=== PATIENT | female | born 1955 | race Caucasian/White ===

== ENCOUNTER 2016-11-20 12:59 | Emergency (ER) | payer OTHER ==
[~2016-11-20] VITALS: Ht 165.1 cm; Wt 58.7 kg
[~2016-11-20 12:59] MED LIST: ALPR-138 PO; KETO10 PO; LEVA750T PO; MAXA10TA2 PO; PRAV20 PO
[2016-11-20 13:16] VITALS: BP 151/80; PULSE 79; TEMP 97.8
--- NOTE | 2016-11-20 13:57 | PD ---
HPI Chief Complaint: Headache Time Seen by Provider: 13:55 Travel History International Travel<30 days: No Contact w/Intl Traveler<30days: No Traveled to known affect area: No History of Present Illness HPI This 61-year-old female is complaining of headache. She started having headache around 10:00 this morning. It is a very sharp left-sided headache. Because into her eye. She has a history of migraine headaches she gets one about every 6 months area is similar to headaches she's had before. She has not taken anything for the headache yet. She says that Imitrex seems to give her a worse headache the next day PFSH Past Medical History Cancer: No Cardiovascular Problems: No High Cholesterol: Yes Diabetes: No Endocrine: No Glaucoma: No Genitourinary: No Hepatitis: No Hiatal Hernia: No Hypertension: No Immune Disorder: No Musculoskeletal: No Neurologic: Yes (MIGRAINE ROSARIO) Respiratory: Yes (ON ATIBIOTICS FOR LUNG INFECTION) Immunizations Current: Yes Migraines: Yes Thyroid Disease: No Menopausal: Yes Past Surgical History Abdominal Surgery: No AICD: No Body Medical Devices: [employer] BREAST IMPLANTS Cardiac Surgery: No Ear Surgery: No Endocrine Surgery: No Eye Surgery: No Genitourinary Surgery: No Gynecologic Surgery: No Joint Replacement: No Oral Surgery: No Pacemaker: No Thoracic Surgery: Yes (BREAST IMPLANTS) Other Surgery: Yes Social History Alcohol Use: No Tobacco Use: Yes (08/22 PPD-QUIT 08/27/2013) Allergies-Medications (Allergen,Severity, Reaction): Coded Allergies: No Known Allergies (Verified , 11/20/16) Reported Meds & Prescriptions Reported Meds & Active Scripts Active Reported Vitamin D-1000 (Cholecalciferol) 1,000 Unit Tab 2,000 Units PO DAILY Simvastatin 40 Mg Tab 40 Mg PO HS Review of Systems General / Constitutional: No: Fever, Chills Eyes: Positive: Photophobia HENT: Positive: Headaches Cardiovascular: No: Chest Pain or Discomfort, Palpitations Respiratory: No: Cough Gastrointestinal: Positive: Vomiting Genitourinary: No: Frequency Musculoskeletal: No: Myalgias Skin: No Rash, No Itching Neurologic: No: Syncope, Focal Abnormalities Psychiatric: No: Disorder of Thought, Mood Disorder, Substance Abuse Hematologic/Lymphatic: No: Easy Bruising Physical Exam Narrative GENERAL: Well-developed female SKIN: Focused skin assessment warm/dry. HEAD: Atraumatic. Normocephalic. EYES: Pupils equal and round. No scleral icterus. No injection or drainage. ENT: No nasal bleeding or discharge. Mucous membranes pink and moist. NECK: Trachea midline. No JVD. Neck is supple MUSCULOSKELETAL: No obvious deformities. No clubbing. No cyanosis. No edema. NEUROLOGICAL: Awake and alert. No obvious cranial nerve deficits. Motor grossly within normal limits. Normal speech. PSYCHIATRIC: Appropriate mood and affect; insight and judgment normal. Data Data Last Documented VS Vital Signs Date Time Temp Pulse Resp B/P Pulse Ox O2 Delivery O2 Flow Rate FiO2 11/20/16 13:58 16 11/20/16 13:16 97.8 79 151/80 Orders Hydromorphone Pf Inj (Dilaudid Pf Inj) (11/20/16 14:00) Ondansetron Odt (Zofran Odt) (11/20/16 14:00) Ketorolac Inj (Toradol Inj) (11/20/16 14:45) MDM Medical Decision Making Medical Screen Exam Complete: Yes Emergency Medical Condition: Yes Medical Record Reviewed: Yes Differential Diagnosis Differential includes migraine headache, tension headache, Narrative Course Patient has had previous headaches diagnosed as migraines. There is a swollen. She is having some nausea and was given Zofran as well as Toradol and Dilaudid. She reports improvement in headache. Diagnosis Primary Impression: Migraine headache Scripts Ketorolac 10 Mg Tab10 Mg PO Q6HR PRN (PAIN) #15 TAB Ref 0 Prov:Eliceo Cid MD 11/20/16 Ondansetron Odt (Zofran Odt)4 Mg Tab4 Mg SL Q6HR PRN (Nausea/Vomiting) #15 TAB Ref 0 Prov:Eliceo Cid MD 11/20/16 Disposition: DISCHARGE HOME Condition: Stable Eliceo Cid MD Nov 20, 2016 13:57
[2016-11-20] MEDS ORDERED: ONDANSETRON ODT 4 MG TAB PO ONE (14:00)
[2016-11-20] MEDS ORDERED: HYDROmorphone HCL PF 1 MG/ML VIAL IM ONE (14:00)
[2016-11-20] MEDS ORDERED: VITA1000 PO (14:02)
[2016-11-20] MEDS ORDERED: SIMV40TA PO (14:02)
[2016-11-20] MEDS ORDERED: KETOROLAC TROMETHAMINE 60 MG/2 ML (IM) VIAL IM ONE (14:45)
[2016-11-20 15:02] VITALS: RESP 16
[2016-11-20] MEDS ORDERED: KETO10 PO (15:02)
[2016-11-20] MEDS ORDERED: ZOFR4TAB3 SL (15:02)
[2016-11-20 15:29] VITALS: BP 115/74
== END 2016-11-20 15:30 | disposition home or self-care (01) ==
LOC: PHEFT 12:59
DX: G43.909 Migraine, unspecified, not intractable, without status migrainosus (principal); R11.0 Nausea; E78.00 Pure hypercholesterolemia, unspecified; Z86.69 Personal history of other diseases of the nervous system and sense organs; Z87.09 Personal history of other diseases of the respiratory system; Z87.891 Personal history of nicotine dependence
CPT/HCPCS: 96372; 99283; J1170; J1885